=== PATIENT | male | born 1935 | race Caucasian/White ===

== ENCOUNTER 2019-12-22 22:46 | Inpatient (IN) | payer OTHER ==
[~2019-12-22] VITALS: Ht 182.9 cm; Wt 95.3 kg
[~2019-12-22 22:46] MED LIST: ACETAMINOPHEN650 M5 PO; ASPIRIN EC81 M1 PO; COLACE 100 MG100 MG PO; FISH OIL + D31 EACH PO; FISH OIL 1,0001 EAC5 PO; MULTI VITAMIN1 EACH PO; OMEPRAZOLE 20 M20 M1 PO
[2019-12-22 23:58] LABS: ABSOLUTE NEUTROPHILS 9.9 thou/uL (1.4-8.2); BASOPHILS 0.4 % (0.0-2.0); HEMATOCRIT 41.6 % (42.0-52.0); HEMOGLOBIN 13.4 gm/dL (14.0-18.0); LYMPHOCYTES 2.3 % (24.0-44.0); MCH 28.4 pg (26.0-34.0); MCHC 32.2 g/dL (28.0-37.0); MONOCYTES 10.6 % (1.0-8.0); PLATELET COUNT 220 thou/uL (150-400); POLYS 86.7 % (36.0-66.0); RBC 4.73 mil/uL (4.50-6.00); RDW 14.7 % (10.5-14.5); WBC 11.4 thou/uL (4.0-11.0)
[2019-12-23 00:05] LABS: ANION GAP 15 mmol/L (7-16); BUN 31 mg/dL (7-18); CALCIUM 9.2 mg/dL (8.5-10.1); CHLORIDE 99 mmol/L (98-107); CO2 27 mmol/L (21-32); CREATININE 1.5 mg/dL (0.7-1.3); GLUCOSE 179 mg/dL (74-106); POTASSIUM 4.3 mmol/L (3.5-5.1); SODIUM 141 mmol/L (136-145)
[2019-12-23 00:16] LABS: ALBUMIN 2.7 g/dL (3.4-5.0); DIRECT BILIRUBIN 2.2 mg/dL (<0.1-0.2); SGOT 22 U/L (15-37); SGPT 18 U/L (30-65); TOTAL BILIRUBIN 3.2 mg/dL (0.2-1.0); TOTAL PROTEIN 7.5 g/dL (6.4-8.2); TROPONIN-I <0.06 ng/mL (<0.06)
--- NOTE | 2019-12-23 01:48 | NUR ---
UPDATED, PT AGREEABE TO THIS
[2019-12-23 04:19] VITALS: BP 114/72
[2019-12-23 05:10] VITALS: BP 116/78
[2019-12-23 06:14] LABS: URINE BILIRUBIN 2+ (Negative); URINE BLOOD 2+ (Negative); URINE CLARITY CLEAR; URINE GLUCOSE-RANDOM* NEGATIVE (Negative); URINE KETONES 1+ (Negative); URINE LEUKOCYTES-REFLEX NEGATIVE (Negative); URINE PROTEIN (DIPSTICK) 1+ (Negative); URINE SPECIFIC GRAVITY 1.025 (1.005-1.035)
[2019-12-23 06:23] LABS: URINE NITRITE-REFLEX POSITIVE (Negative)
[2019-12-23 06:24] LABS: ICTOTEST (BILI CONFIRMATORY) Positive (Negative); URINE COLOR DK AMBER
[2019-12-23 06:38] LABS: CASTS None Seen /LPF (None Seen); MUCUS >6 Heavy strn/LPF (None Seen); SQUAMOUS 0-3 Few /LPF (0-3)
[2019-12-23 06:39] LABS: AMORPHOUS URATES Few /LPF (None Seen); BACTERIA-REFLEX 1-9 Few /HPF (None Seen); URINE RBC 0-2 Rare /HPF (0-2); URINE WBC-REFLEX 0-5 Rare /HPF (0-5)
--- NOTE | 2019-12-23 07:21 | NUR ---
ASSUMED CARE OF PT AT 0450HRS. PT AOX3-4 AND LETS NEEDS BE KNOWN. FALL PRECAUTION IN PLACE. PT IS SHISHMAREF [place]. PT WAS ORIENTED TO THE UNIT AND HIS ROOM. PT WAS ABLE TO ANSWER ALL ADMISSION RELATED QUESTIONS.PT DENIES PAIN, NAUSEA, OR SOA. ASESSMENT CHARTED. ORDERS RECEIVED AND STARTED. PT RUNS SA ON TELE. COVID ANTIGEN WAS NEGATIVE. PT IS INCT OF BLADDER. VSS AND NO S/S OF ACUTE DISTRESS. PT WAS ABLE TO GET COMFORTABLE AND SLEEP. REPORT GIVEN TO DAY RN.
[2019-12-23 07:41] VITALS: BP 125/711
[2019-12-23 15:09] VITALS: BP 117/72
--- NOTE | 2019-12-23 17:59 | NUR ---
RN HAS ASSUMED PT'S CARE AT 0700AM, PT IS A&O3, PT CAN FOLLOW COMMANDS,PT IS CONTINUING IV FLUID AND IV ABX, PT'S VS ARE STABLE, PT DOES NOT HAVE SOB AND PAIN, PT STAYS ISOLATION FOR POSITIVE COVID.
[2019-12-23 20:00] VITALS: BP 119/71
--- NOTE | 2019-12-24 02:33 | NUR ---
PT LYING IN BED. VOIDING PER URINAL. DENIES PAIN. RESTING COMFORTABLY. NO NEEDS VOICED. CALL LIGHT WITHIN REACH. FREQUENT OBSERVATION.
[2019-12-24 04:15] LABS: HEMATOCRIT 35.5 % (42.0-52.0); HEMOGLOBIN 11.6 gm/dL (14.0-18.0); MCH 28.6 pg (26.0-34.0); MCHC 32.7 g/dL (28.0-37.0); MCV 87.6 fL (80.0-100.0); RBC 4.06 mil/uL (4.50-6.00); RDW 14.2 % (10.5-14.5); WBC 7.6 thou/uL (4.0-11.0)
[2019-12-24 04:25] LABS: CALCIUM 8.2 mg/dL (8.5-10.1); CREATININE 1.2 mg/dL (0.7-1.3); MAGNESIUM 1.8 mg/dL (1.8-2.4); POTASSIUM 3.5 mmol/L (3.5-5.1)
[2019-12-24 04:43] VITALS: BP 124/73
[2019-12-24 07:50] VITALS: BP 132/82
[2019-12-24 15:30] VITALS: BP 148/90
--- NOTE | 2019-12-24 16:36 | EKG ---
[facility] [place] [address] ELECTROCARDIOGRAM REPORT Name: KAYLENE REY Room #: 350-P ADM IN M.R.#: [id number] Admission: 12/23/19 Attend Phys: Jaren Hernandez MD Discharge: Date of : 35 Report #: [id number] THIS REPORT FOR: cc: Franko Padgett MD, Michael L. MD Lundgren,Levi Boyd MD [facility] ~ THIS REPORT FOR: //name// [facility] ED Test Date: 2019-12-22 Test Time: 23:16:35 Pat Name: KAYLENE REY Department: Room: 350 Gender: M Endoscopy Rn: : [id number] Requested By: Enedina Jimenez Order Number: [id number] MD: Levi Gallegos Measurements Intervals [place] Rate: 107 P: UT: QRS: -107 QRSD: 143 T: 8 QT: 361 QTc: 482 Interpretive Statements Sinus tachycardia Atrial premature complexes RBBB and LAFB Compared to ECG 03/07/2013 15:32:59 No significant change was found Electronically Signed On 12-24-2019 16:36:39 CDT by Levi Gallegos [email or web address] <ELECTRONICALLY SIGNED> By: Levi Gallegos MD, [facility] 12/24/19 [id number] Levi Gallegos MD, [facility] /EPI
--- NOTE | 2019-12-24 19:34 | NUR ---
RN HAS ASSUMED PT'S CARE AT 0700AM, PT IS A&OX3, PT CAN FOLLOW COMMANDS, PT IS CONTINUING IV FLIUDS AND IV ABX, PT'S VS ARE STABLE.
[2019-12-24 20:27] VITALS: BP 121/69
--- NOTE | 2019-12-24 20:47 | NUR ---
PT ALERT AND ORIENTED X4 . KASAAN. VSS . UNLABORED ON RA.SAT 94. BED DOWN IN LOW LOCKED POSITION. CALL LIGHT IN REACH. BED ALARM ON. WILL CONTINUE TO MONITOR PT FOR CHANGES.
[2019-12-24 22:51] VITALS: BP 114/79
[2019-12-24 23:57] LABS: CREATININE 1.2 mg/dL (0.7-1.3); MAGNESIUM 1.8 mg/dL (1.8-2.4); POTASSIUM 3.9 mmol/L (3.5-5.1)
--- NOTE | 2019-12-25 01:47 | NUR ---
PT IS ALERT AND ORIENTED X3. VSS. AFEBRILE. PT HAD A RUN VTACH . NOTIFIED LOSS PREVENTION OFFICER. STAT BMP AND MG DONE. WILL PLACE CARDIOLOGY CONSULT IN AM ORDERED. PT SLEEPING AT TIME. VSS AT TIME. ASYMPTOMATIC. WILL CONTINUE TO MONITOR PT FOR CHANGES. BED DOWN . CALL LIGHT IN REACH. BED ALARM ON. URINE SAMPLE SENT TO LAB.
[2019-12-25 02:21] VITALS: BP 123/80
[2019-12-25 05:33] VITALS: BP 124/73
[2019-12-25 05:48] LABS: CALCIUM 7.9 mg/dL (8.5-10.1); CREATININE 1.4 mg/dL (0.7-1.3); HEMATOCRIT 34.2 % (42.0-52.0); HEMOGLOBIN 11.3 gm/dL (14.0-18.0); MAGNESIUM 1.9 mg/dL (1.8-2.4); MCH 28.8 pg (26.0-34.0); MCHC 32.9 g/dL (28.0-37.0); MCV 87.6 fL (80.0-100.0); RBC 3.91 mil/uL (4.50-6.00); RDW 13.8 % (10.5-14.5); WBC 6.8 thou/uL (4.0-11.0)
[2019-12-25 05:49] LABS: POTASSIUM 4.1 mmol/L (3.5-5.1)
--- NOTE | 2019-12-25 06:30 | NUR ---
PT RESTING QUIETLY. VSS SATS 94% PRESENTLY. NO S/S DISTRESS.
[2019-12-25 07:20] VITALS: BP 124/92
--- NOTE | 2019-12-25 15:47 | NUR ---
PT CARE ASSUMED AT 0700, PT ALERT AND ORIENTED X4, DENIES ANY PAIN. PT IS ON ROOM AIR, NO SIGNS OF DISTRESS NOTED. PT IS UP TO COMMODE WITH ONE ASSIST AN USES URINAL. FALL PRECATIONS IN PLACE. BED ALARM ON, CALL LIGHT IN PLACE. PT PROGRESSING TOWARDS CARE. WILL CONTINUE TO MONITOR.
--- NOTE | 2019-12-25 16:26 | NUR ---
INITIAL ASSESSMENT: Received consult. SW reviewed chart and spoke with nursing. Pt was admitted from home due to pneumonia/failure to thrive. Pt placed in Enhanced Isolation due to testing positive for COVID-19. Pt is afebrile and not requiring O2. Pt is on IV abx and IV steroids. Cardiology consulted. SW spoke with pt via phone. Introduced role of SW. Pt appears to be alert/orientated. Pt reports he lives at home alone. Prior to admission, pt was independent with ADLs. Does not use any DME. Pt has a stair glide in the home. No hx of HH services or post-acute placement. Pt's PCP is Dr. Franko Padgett at [facility]. Pt states that he will be getting a new PCP at [facility]. SW discussed possible discharge needs: post-acute placement or HH. Pt states he does not want to go to a facility and would prefer to return home with HH. SW is following to assist as needed with discharge planning.
[2019-12-25 16:36] VITALS: BP 121/77
[2019-12-25 19:20] VITALS: BP 108/77
[2019-12-25 22:36] VITALS: BP 129/81
--- NOTE | 2019-12-25 22:51 | NUR ---
PT ALERT AND ORIENTED X4, VSS AFEBRILE. MONITOR SHOWED 14 BEATS TACHY DYSRHYTHIMA. VSS AT TIME. NOTIFIED [place] ZAMORA FAMILY THERAPIST . PICTURE SHOWN TO HER OF DYSRHYTMIA. STATED POSSIBLE BURST OF SVT VS AFIB. PT DENIED PAIN BUT STATED HAD A LITTLE INDIGESTION AFTER SNACK. TUMS ORDERED. WILL NOTIFIY FAMILY THERAPIST IF ANY FURTHER S/S.
[2019-12-26 03:57] VITALS: BP 132/83
--- NOTE | 2019-12-26 04:59 | NUR ---
VSS PT C/O ACID INDIGESTION. ENCOURAGED TO KEEP HOB RAISED. PT STATED HE USUSALLY TAKES 2 TUMS AT HS. 2 TUMS GIVEN EARLY THIS AM AND WILL HOLD 0600 DOSE.HE DENIES CHEST PAIN OR SOA.
[2019-12-26 06:19] LABS: HEMATOCRIT 35.3 % (42.0-52.0); HEMOGLOBIN 11.6 gm/dL (14.0-18.0); MCH 28.7 pg (26.0-34.0); MCHC 32.9 g/dL (28.0-37.0); MCV 87.1 fL (80.0-100.0); RBC 4.05 mil/uL (4.50-6.00); RDW 14.1 % (10.5-14.5); WBC 10.8 thou/uL (4.0-11.0)
[2019-12-26 06:24] LABS: CALCIUM 8.7 mg/dL (8.5-10.1); CREATININE 1.3 mg/dL (0.7-1.3); MAGNESIUM 2.1 mg/dL (1.8-2.4); POTASSIUM 3.8 mmol/L (3.5-5.1)
[2019-12-26 07:07] VITALS: BP 114/77
[2019-12-26 11:39] VITALS: BP 114/77
--- NOTE | 2019-12-26 13:59 | NUR ---
ANGEL reviewed chart and spoke with nursing and attending physician. Pt is in Enhanced Isolation due to COVID-19. Pt is afebrile and not requiring O2. Pt is on IV abx and IV steroids. Discharge home with HH is anticipated for tomorrow. ANGEL spoke with pt via phone to discuss discharge plan. Pt agreeable with services, as he does not want to to go a SNF. Options provided for HH providers. No preference voiced. ANGEL faxed referral to [facility] , who accepts pt's insurance and have a COVID team available. Notified liaison, Yanely, of new referral. [facility] is able to accept pt on service. Pt will need transportation home when discharged. ANGEL is following to assist as needed with discharge planning.
--- NOTE | 2019-12-26 14:34 | NUR ---
PT CARE ASSUMED AT 0700, PT ALERT AND ORIENTED X4, DENIES ANY PAIN, NAUSEA AND VOMITTING. PT IS ON ROOM AIR, NO SIGNS OF DISTRESS NOTED. PT CONTINOUS TO HAVE TO DIARRHEA. WAS UP IN CHAIR, FOR A WHILE, BACK IN BED NOW. CALL AND TABLE WITHIN REACH. FALL PRECAUTIONS IN PLACE. PT PROGRESSING TOWARDS CARE.
[2019-12-26 15:02] VITALS: BP 116/80
--- NOTE | 2019-12-26 16:46 | NUR ---
FAXED REFERRAL TO [facility]CEIVED CONFIRMATION AND LEFT MGS WITH LASHAY IN ADM TO SUBMIT FOR AUTH IF THEY CAN ACCEPT.
[2019-12-26 19:16] VITALS: BP 130/84
[2019-12-27 04:02] VITALS: BP 150/88
--- NOTE | 2019-12-27 06:20 | NUR ---
PT MAKING SLOW PROGRESS TOWARDS GOALS. ON ROOM AIR THROUGHOUT THE NIGHT. DENIED ANY SOA AT REST AND WHEN UP TO BSC. DID GET UP TO BSC WITHOUT ASSISTANCE. WAS ABLE TO STAND FROM THE BED IN TWO MOTIONS. (ONE, MOVING SELF TO SIDE OF BED, FEET ON THE GROUND. TWO, STANDING UP) WAS ABLE TO PIVOT AND SIT ON BSC. DID HAVE A SMALL AMOUNT OF TROUBLE STANDING UP FROM BSC. TOOK TWO ATTEMPTS BUT WAS ABLE TO SUCCESFULLY STAND UPON SECOND ATTEMPT. DID APPROPRIATELY WHIPE HIMSELF AFTERWARDS WITHOUT HELP.
[2019-12-27 07:12] VITALS: BP 154/94
[2019-12-27 10:21] LABS: CREATININE 1.1 mg/dL (0.7-1.3); MAGNESIUM 2.1 mg/dL (1.8-2.4); POTASSIUM 4.7 mmol/L (3.5-5.1)
--- NOTE | 2019-12-27 11:28 | NUR ---
ANGEL reviewed chart and spoke with nursing and attending physician. Pt is in Enhanced Isolation due to COVID-19. Pt is afebrile and not requiring O2. Pt is medically stable for discharge to [facility] today pending insurance authorization. ANGEL placed call to pt's room. No answer. ANGEL spoke with pt's dtr, Taylor, via phone to provide update and discuss discharge plan. Taylor is aware and in agreement with plan. ANGEL updated [facility] post-acute liaison, who confirms they are working on insurance authorization. ANGEL is following to assist as needed with discharge planning.
[2019-12-27 11:45] LABS: HEMATOCRIT 42.5 % (42.0-52.0); MCH 28.6 pg (26.0-34.0); MCHC 32.1 g/dL (28.0-37.0); MCV 89.1 fL (80.0-100.0); RBC 4.77 mil/uL (4.50-6.00); RDW 14.9 % (10.5-14.5); WBC 9.5 thou/uL (4.0-11.0)
[2019-12-27 11:47] LABS: HEMOGLOBIN 13.6 gm/dL (14.0-18.0)
--- NOTE | 2019-12-27 16:56 | NUR ---
FAXED TODAY'S PT NOTES TO [facility]CEIVED CONFIRMATION AND LEFT MSG WITH LASHAY IN ADM.
--- NOTE | 2019-12-27 19:17 | NUR ---
PATIENT HAS RESTED IN BED THROUGH THE DAY. DOES NOT SEEM TO BE IN PAIN OR DISTRESS. PLEASANT WITH CARES.
[2019-12-27 19:40] VITALS: BP 169/85
[2019-12-28 03:45] VITALS: BP 138/71
[2019-12-28 04:40] VITALS: BP 138/71; BP 95/38
--- NOTE | 2019-12-28 05:58 | NUR ---
PT MAKING PROGRESS TOWARDS GOALS. ON ROOM AIR THROUGHOUT THE NIGHT. HAS DENIED ANY SOA WHILE AT REST OR WHEN UP TO BSC.
[2019-12-28 07:48] VITALS: BP 123/58
[2019-12-28 10:00] VITALS: BP 123/58
--- NOTE | 2019-12-28 12:51 | NUR ---
FAXED CLINICAL UPDATE TO [facility] RECEIVED CONFIRMATION AND LEFT MSG WITH LASHAY IN ADM.
[2019-12-28] MEDS ORDERED: CALTRATE-600 W1 EACH PO (13:57)
[2019-12-28] MEDS ORDERED: PROVENTIL HFA6.7 G1 INH (13:57)
[2019-12-28] MEDS ORDERED: PREDNISONE 10 M10 M1 PO (13:57)
[2019-12-28] MEDS ORDERED: METOPROLOL SUCC50 MG PO (13:57)
[2019-12-28] MEDS ORDERED: TYLENOL325 MG PO (13:57)
[2019-12-28] MEDS ORDERED: CEFDINIR300 MG PO (13:57)
[2019-12-28] MEDS ORDERED: PROBIOTIC1 EAC2 PO (14:02)
--- NOTE | 2019-12-28 14:22 | NUR ---
DISCHARGE NOTE: ANGEL reviewed chart and spoke with nursing and attending physician. Pt remains in Enhanced Isolation due to COVID-19. Pt is afebrile and not on O2. Pt is medically stable for discharge to [facility]. sr. merchandise planner faxed updated clinical and therapy notes earlier today. SW notified by [facility] post-acute liaison that they received authorization and are able to accept pt today. Wheelchair van transportation scheduled for [id number]. ANGEL placed call to pt's room. No answer. ANGEL spoke with pt's dtr, Taylor, via phone to provide update and discuss discharge plan. Taylor is aware and agreeable with plan. ANGEL updated Mary Kate at [facility], who will follow for services when pt returns home. ANGEL updated nursing and provided number for report. Chart copy requested. No additional SW needs identified at this time, but is available to assist should needs arise.
--- NOTE | 2019-12-28 16:01 | NUR ---
PATIENT BEING DISCHARGED AT THIS TIME TO [facility]. REPORT CALLED. HE IS ALERT ORIENTED. VSS AT TIME OF DISCHARGE. PLEASANT WITH CARE.
== END 2019-12-28 16:08 | DRG 871 ==
LOC: ER 22:46 → EROBS 12-23 03:59 → 3W 12-23 03:59
PROVIDERS: Emergency Medicine; Nurse Practitioner Family; ADMIT Internal Medicine; ATTEND Internal Medicine
DX: A41.89 Other specified sepsis (principal); U07.1 COVID-19; J12.89 Other viral pneumonia; N17.9 Acute kidney failure, unspecified; E46 Unspecified protein-calorie malnutrition; R65.20 Severe sepsis without septic shock; K21.9 Gastro-esophageal reflux disease without esophagitis; E80.6 Other disorders of bilirubin metabolism; R62.7 Adult failure to thrive; R74.0 Nonspecific elevation of levels of transaminase and lactic acid dehydrogenase [LDH]; K52.9 Noninfective gastroenteritis and colitis, unspecified; F32.9 Major depressive disorder, single episode, unspecified; Z85.038 Personal history of other malignant neoplasm of large intestine; Z68.28 Body mass index [BMI] 28.0-28.9, adult; Z82.49 Family history of ischemic heart disease and other diseases of the circulatory system; Z98.818 Other dental procedure status; Z79.82 Long term (current) use of aspirin; Z79.899 Other long term (current) drug therapy
CPT/HCPCS: 10879